=== PATIENT | female | born 1935 | race Caucasian/White ===

== ENCOUNTER 2018-12-14 13:21 | Emergency (ER) | payer MEDICARE ==
[2018-12-14] MEDS ORDERED: SODIUM CHLORIDE 0.9% 500 ML 500 ML IV ONE (14:13)
[2018-12-14 14:25] LABS: Glucose,Whole Blood 134 mg/dL (75-99)
[2018-12-14 14:38] LABS: Basophils # (A) 0.1 k/uL (0-0.2); Basophils % (A) 0 %; Eosinophils % (A) 0 %; HCT 38.6 % (34.0-46.0); HGB 13.3 gm/dL (11.4-16.0); Lymphocytes # (A) 0.4 k/uL (1.0-4.8); Lymphocytes % (A) 4 %; MCH 30.4 pg (25.0-35.0); MCHC 34.6 g/dL (31.0-37.0); MCV 87.8 fL (80.0-100.0); Mean Platelet Volume 8.1; Monocytes # (A) 0.7 k/uL (0-1.0); Monocytes % (A) 6 %; Neutrophils # (A) 10.1 k/uL (1.3-7.7); Neutrophils % (A) 89 %; Platelet Count 159 k/uL (150-450); RBC 4.39 m/uL (3.80-5.40); RDW 14.3 % (11.5-15.5); WBC 11.3 k/uL (3.8-10.6)
[2018-12-14 14:53] LABS: INR 0.9 (<1.2); Partial Thromboplastin Time 21.7 sec (22.0-30.0); Prothrombin Time 9.5 sec (9.0-12.0)
--- NOTE | 2018-12-14 14:54 | CT ---
EXAMINATION TYPE: CT brain wo con DATE OF EXAM: 12/14/2018 HISTORY: Possible medication reaction CT DLP: 1094.4 mGycm. Automated Exposure Control for Dose Reduction was Utilized. TECHNIQUE: CT scan of the head is performed without contrast. COMPARISON: None. FINDINGS: There is no acute intracranial hemorrhage or midline shift identified. There is diffuse v entricular and sulcal prominence consistent with diffuse age-related cerebral atrophy. There is low- attenuation in the periventricular white matter consistent with chronic small vessel ischemic change. Vascular calcification distal internal carotid arteries is present bilaterally The globes are intac t and the visualized sinuses are clear. IMPRESSION: No acute intracranial hemorrhage or midline shift. There is moderate diffuse age-relate d cerebral atrophy and chronic small vessel ischemic change noted.
[2018-12-14 15:01] LABS: Albumin 3.8 g/dL (3.5-5.0); Calcium 9.5 mg/dL (8.4-10.2); Potassium 4.9 mmol/L (3.5-5.1); Total Bilirubin 0.9 mg/dL (0.2-1.3); Total Protein 6.6 g/dL (6.3-8.2)
--- NOTE | 2018-12-14 15:01 | XR ---
EXAMINATION TYPE: XR chest 2V DATE OF EXAM: 12/14/2018 COMPARISON: 01/10/2016 HISTORY: Altered mental status TECHNIQUE: Frontal and lateral views of the chest are obtained. FINDINGS: Cardiomediastinal silhouette is enlarged. There is minimal pulmonary vascular congestion. Overall low lung volumes. No focal consolidation, pleural effusion or pneumothorax. Generalized osseo us demineralization with mild degenerative changes of the spine. IMPRESSION: Mild fluid overload, likely cardiogenic from congestive heart failure.
[2018-12-14] MEDS ORDERED: SODIUM CHLORIDE 0.9% 1,000 ML IV STA (15:06)
[2018-12-14 16:22] LABS: Appearance,Urine Cloudy (Clear); Bacteria,Urine Occasional /hpf; Bilirubin,Urine Negative (Negative); Blood,Urine Trace (Negative); Color,Urine Light Yellow; Glucose,Urine (UA) Negative (Negative); Ketones,Urine Negative (Negative); Leukocyte Esterase,Urine Large (Negative); Nitrite,Urine Negative (Negative); PH, Urine 5.5 (5.0-8.0); Protein,Urine 1+ (Negative); RBC,Urine 2 /hpf (0-5); Specific Gravity,Urine 1.013 (1.001-1.035); Squamous Epithelial Cell,Urine <1 /hpf (0-4); Urobilinogen,Urine <2.0 mg/dL (<2.0); WBC,Urine >182 /hpf (0-5)
[2018-12-14 16:24] VITALS: TEMP 99.5
[2018-12-14] MEDS ORDERED: cefTRIAXone IN SWFI 1,000 MG/10 ML SYRINGE IVP STA (16:30)
[2018-12-14 16:45] LABS: Amphetamine Screen,Urine Not Detected (NotDetected); Barbiturate Screen,Urine Not Detected (NotDetected); Benzodiazepines Screen,Urine Not Detected (NotDetected); Cocaine Screen,Urine Not Detected (NotDetected); Methadone Screen, Urine Not Detected (NotDetected); Opiate Screen,Urine Detected (NotDetected); Oxycodone Screen, Urine Detected (NotDetected); Phencyclidine Screen,Urine Not Detected (NotDetected); Tricyclic Antidepressant,Urine Not Detected (NotDetected); Urn Cannabinoid Scrn Not Detected (NotDetected)
[2018-12-14] MEDS ORDERED: ASPIRIN 81 MG PO STA (16:52)
--- NOTE | 2018-12-14 17:01 | ED ---
General Adult HPI - General Chief complaint: Altered Mental Status Stated complaint: poss med reaction Time Seen by Provider: 12/14/18 14:03 Source: patient, RN notes reviewed, old records reviewed Mode of arrival: EMS Limitations: no limitations - History of Present Illness Initial comments: 83-year-old female patient past history significant for atrial fibrillation, hypertension, hyperlipidemia presents ED chief complaint of altered mental status. Family reports that has been worsening for approximately one week. Patient was seen by primary care provider yesterday and started on baclofen for mild movement disorder. Patient woke up this morning and was altered. Family is in room fretting history. Denies any recent falls or trauma. Denies any other complaints. Systemic: Pt denies fatigue, fever/chills, rash. Pt night sweats, weight loss. Neuro: Pt denies headache, visual disturbances, syncope or pre-syncope. HEENT: Pt denies ocular discharge or irritation, otalgia, rhinorrhea, pharyngitis or notable lymphadenopathy. Cardiopulmonary: Pt denies chest pain, SOB, heart palpitations, dyspnea on exertion. Abdominal/GI: Pt denies abdominal pain, n/v/d. : Pt denies dysuria, burning w/ urination, frequency/urgency. Denies new onset urinary or bowel incontinence. MSK: Pt denies myalgia, loss of strength or function in extremities. Neuro: Pt denies new onset weakness, paresthesias. - Related Data Home Medications Medication Instructions Recorded Confirmed Gabapentin 300 mg PO BID 12/15/15 01/10/16 Multivitamin/Iron/Folic Acid 1 tab PO DAILY 12/15/15 01/10/16 [Centrum Complete Multivit Tab] Simvastatin [Zocor] 40 mg PO HS 12/15/15 01/10/16 rOPINIRole HCL 1 mg PO HS 12/15/15 01/10/16 traMADol HCL [Ultram] 50 mg PO Q6H PRN 12/15/15 01/10/16 Aspirin [Adult Low Dose Aspirin EC] 81 mg PO DAILY 12/31/15 01/10/16 Fish Oil/Dha/Epa [Fish Oil 1,200 1 cap PO DAILY 12/31/15 01/10/16 mg Fish Oil] Hydrochlorothiazide [Hydrodiuril] 25 mg PO DAILY 12/31/15 01/10/16 amLODIPine BESYLATE/BENAZEPRIL 1 cap PO DAILY 12/31/15 01/10/16 [amLODIPine BESYLATE/BENAZEPRIL 5-40 MG] Previous Rx's Medication Instructions Recorded Levofloxacin [Levaquin] 250 mg PO DAILY #5 tablet 01/13/16 Melatonin 6 mg PO HS tablet 01/13/16 Pantoprazole [Protonix] 40 mg PO DAILY #30 tablet. 01/13/16 Allergies Allergy/AdvReac Type Severity Reaction Status Date / Time codeine AdvReac Nausea Verified 01/10/16 13:22 Review of Systems ROS Statement: Those systems with pertinent positive or pertinent negative responses have been documented in the HPI. ROS Other: All systems not noted in ROS Statement are negative. Past Medical History Past Medical History: Atrial Fibrillation, Cancer, Hyperlipidemia, Hypertension Additional Past Medical History / Comment(s): nose skin cancer History of Any Multi-Drug Resistant Organisms: None Reported Past Surgical History: Cholecystectomy, Hysterectomy, Orthopedic Surgery Additional Past Surgical History / Comment(s): bladder suspension and cervial ring Past Anesthesia/Blood Transfusion Reactions: No Reported Reaction Past Psychological History: No Psychological Hx Reported Smoking Status: Former smoker Past Alcohol Use History: None Reported Past Drug Use History: None Reported - Past Family History Sister(s) Family Medical History: Diabetes Mellitus Brother(s) Family Medical History: Cancer (Brain) General Exam - General Exam Comments Initial Comments: Constitutional: NAD, alert and oriented 3. Pt has pleasant affect. HEENT: NC/AT, trachea midline, neck supple, no lymphadenopathy. Posterior pharynx non erythematous, without exudates. External ears appear normal, without discharge. Mucous membranes moist. Eyes PERRLA, EOM intact. There is no scleral icterus. No pallor noted. Cardiopulmonary: RRR, no murmurs, rubs or gallops, no JVD noted. Lungs CTAB in anterior and posterior santiago. No peripheral edema. Abdominal exam: Abdomen soft and non-distended. Abdomen non-tender to palpation in all 4 quadrants. Bowel sounds active in LLQ. No hepatosplenomegaly. No ecchymosis Neuro: CN II-XII intact. No nuchal rigidity. No raccon eyes, no coyle sign, no hemotympanum. No cervical spinal tenderness. MSK: No posterior calf tenderness bilaterally, homans sign negative bilaterally. Posterior tibialis and radial pulse +2 bilaterally. Sensation intact in upper and lower extremities. Limitations: no limitations Course Vital Signs 12/14/18 12/14/18 12/14/18 13:34 13:37 14:00 Temperature 100.6 F H Pulse Rate 87 69 78 Respiratory 19 18 14 Rate Blood Pressure 227/103 227/103 O2 Sat by Pulse 97 98 Oximetry 12/14/18 12/14/18 12/14/18 14:30 15:00 15:30 Temperature Pulse Rate 80 76 80 Respiratory 23 19 8 L Rate Blood Pressure 225/127 190/92 O2 Sat by Pulse 98 98 100 Oximetry 12/14/18 12/14/18 16:00 16:23 Temperature 99.5 F Pulse Rate 74 74 Respiratory 20 20 Rate Blood Pressure 179/78 179/78 O2 Sat by Pulse 100 100 Oximetry Medical Decision Making - Medical Decision Making 83-year-old female patient past history significant for atrial fibrillation, hypertension, hyperlipidemia presents ED chief complaint of altered mental status. Family reports that has been worsening for approximately one week. Patient was seen by primary care provider yesterday and started on baclofen for mild movement disorder. Patient woke up this morning and was altered. Family is in room fretting history. Denies any recent falls or trauma. Denies any other complaints. She also has additionally displayed hypertension, resolved for intervention. Physical exam displayed no focal neurologic deficit. She will answer questions appropriately. Patient does have some weakness symmetrically in upper and lower extremities. No other acute pathology identified. EKG displayed atrial fibrillation. CBC correlation studies non- impressive. CMP revealed acute kidney injury of 2.86. 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 Troponin 0.016. Ammonia negative. UA displayed urinary tract infection. Toxicology revealed opiates, oxycodone. Brain CT displayed no acute process. Chest x-ray revealed mild fluid overload. Case discussed and patient was examined by attending physician Dr. Couch. It is possible that also understands likely due to urinary tract infection, however neurologic cause not excluded. Patient not TPA candidate, patient on candidate for CT angio due to kidney function. Case is discussed with on-call neurologist Dr. eRed who reccomended transfer to [facility] for neurology evaluation and MRI. She started on Rocephin for urinary tract infection and one dose of po cipro per reccomendation from pharmacy. Administered 250 mL bolus. 75 mL/hr normal saline. Pt transferred to [facility] for neurology. Case discussed and pt seen by Dr. Couch. Accepting physician Dr. Herbert. - Lab Data Result diagrams: 12/14/18 14:01 12/14/18 14:01 Lab Results 12/14/18 12/14/18 12/14/18 Range/Units 14:01 14:01 14:01 WBC 11.3 H (3.8-10.6) k/uL RBC 4.39 (3.80-5.40) m/uL Hgb 13.3 (11.4-16.0) gm/dL Hct 38.6 (34.0-46.0) % MCV 87.8 (80.0-100.0) fL MCH 30.4 (25.0-35.0) pg MCHC 34.6 (31.0-37.0) g/dL RDW 14.3 (11.5-15.5) % Plt Count 159 (150-450) k/uL Neutrophils % 89 % Lymphocytes % 4 % Monocytes % 6 % Eosinophils % 0 % Basophils % 0 % Neutrophils # 10.1 H (1.3-7.7) k/uL Lymphocytes # 0.4 L (1.0-4.8) k/uL Monocytes # 0.7 (0-1.0) k/uL Eosinophils # 0.0 (0-0.7) k/uL Basophils # 0.1 (0-0.2) k/uL PT 9.5 (9.0-12.0) sec INR 0.9 (<1.2) APTT 21.7 L (22.0-30.0) sec Sodium 139 (137-145) mmol/L Potassium 4.9 (3.5-5.1) mmol/L Chloride 100 (98-107) mmol/L Carbon Dioxide 26 (22-30) mmol/L Anion Gap 13 mmol/L BUN 58 H (7-17) mg/dL Creatinine 2.86 H (0.52-1.04) mg/dL Est GFR (CKD-EPI)AfAm 17 (>60 ml/min/1.73 sqM) Est GFR (CKD-EPI)NonAf 14 (>60 ml/min/1.73 sqM) Glucose 128 H (74-99) mg/dL POC Glucose (mg/dL) (75-99) mg/dL POC Glu Filling Layer Up ID Calcium 9.5 (8.4-10.2) mg/dL Magnesium 2.0 (1.6-2.3) mg/dL Total Bilirubin 0.9 (0.2-1.3) mg/dL AST 19 (14-36) U/L ALT 18 (9-52) U/L Alkaline Phosphatase 85 (38-126) U/L Ammonia (<30) umol/L Creatine Kinase 82 (30-135) U/L Troponin I (0.000-0.034) ng/mL Total Protein 6.6 (6.3-8.2) g/dL Albumin 3.8 (3.5-5.0) g/dL Urine Color Urine Appearance (Clear) Urine pH (5.0-8.0) Ur Specific [place] (1.001-1.035) Urine Protein (Negative) Urine Glucose (UA) (Negative) Urine Ketones (Negative) Urine Blood (Negative) Urine Nitrite (Negative) Urine Bilirubin (Negative) Urine Urobilinogen (<2.0) mg/dL Ur Leukocyte Esterase (Negative) Urine RBC (0-5) /hpf Urine WBC (0-5) /hpf Urine WBC Clumps (None) /hpf Ur Squamous Epith Cells (0-4) /hpf Urine Bacteria (None) /hpf Urine Opiates Screen (NotDetected) Ur Oxycodone Screen (NotDetected) Urine Methadone Screen (NotDetected) Ur Propoxyphene Screen (NotDetected) Ur Barbiturates Screen (NotDetected) U Tricyclic Antidepress (NotDetected) Ur Phencyclidine Scrn (NotDetected) Ur Amphetamines Screen (NotDetected) U Methamphetamines Scrn (NotDetected) U Benzodiazepines Scrn (NotDetected) Urine Cocaine Screen (NotDetected) U Marijuana (THC) Screen (NotDetected) 12/14/18 12/14/18 12/14/18 Range/Units 14:01 14:22 15:30 WBC (3.8-10.6) k/uL RBC (3.80-5.40) m/uL Hgb (11.4-16.0) gm/dL Hct (34.0-46.0) % MCV (80.0-100.0) fL MCH (25.0-35.0) pg MCHC (31.0-37.0) g/dL RDW (11.5-15.5) % Plt Count (150-450) k/uL Neutrophils % % Lymphocytes % % Monocytes % % Eosinophils % % Basophils % % Neutrophils # (1.3-7.7) k/uL Lymphocytes # (1.0-4.8) k/uL Monocytes # (0-1.0) k/uL Eosinophils # (0-0.7) k/uL Basophils # (0-0.2) k/uL PT (9.0-12.0) sec INR (<1.2) APTT (22.0-30.0) sec Sodium (137-145) mmol/L Potassium (3.5-5.1) mmol/L Chloride (98-107) mmol/L Carbon Dioxide (22-30) mmol/L Anion Gap mmol/L BUN (7-17) mg/dL Creatinine (0.52-1.04) mg/dL Est GFR (CKD-EPI)AfAm (>60 ml/min/1.73 sqM) Est GFR (CKD-EPI)NonAf (>60 ml/min/1.73 sqM) Glucose (74-99) mg/dL POC Glucose (mg/dL) 134 H (75-99) mg/dL POC Glu Filling Layer Up ID Giselle Stevens Calcium (8.4-10.2) mg/dL Magnesium (1.6-2.3) mg/dL Total Bilirubin (0.2-1.3) mg/dL AST (14-36) U/L ALT (9-52) U/L Alkaline Phosphatase (38-126) U/L Ammonia (<30) umol/L Creatine Kinase (30-135) U/L Troponin I 0.016 (0.000-0.034) ng/mL Total Protein (6.3-8.2) g/dL Albumin (3.5-5.0) g/dL Urine Color Light Yellow Urine Appearance Cloudy H (Clear) Urine pH 5.5 (5.0-8.0) Ur Specific [place] 1.013 (1.001-1.035) Urine Protein 1+ H (Negative) Urine Glucose (UA) Negative (Negative) Urine Ketones Negative (Negative) Urine Blood Trace H (Negative) Urine Nitrite Negative (Negative) Urine Bilirubin Negative (Negative) Urine Urobilinogen <2.0 (<2.0) mg/dL Ur Leukocyte Esterase Large H (Negative) Urine RBC 2 (0-5) /hpf Urine WBC >182 H (0-5) /hpf Urine WBC Clumps Moderate H (None) /hpf Ur Squamous Epith Cells <1 (0-4) /hpf Urine Bacteria Occasional H (None) /hpf Urine Opiates Screen Detected H (NotDetected) Ur Oxycodone Screen Detected H (NotDetected) Urine Methadone Screen Not Detected (NotDetected) Ur Propoxyphene Screen Not Detected (NotDetected) Ur Barbiturates Screen Not Detected (NotDetected) U Tricyclic Antidepress Not Detected (NotDetected) Ur Phencyclidine Scrn Not Detected (NotDetected) Ur Amphetamines Screen Not Detected (NotDetected) U Methamphetamines Scrn Not Detected (NotDetected) U Benzodiazepines Scrn Not Detected (NotDetected) Urine Cocaine Screen Not Detected (NotDetected) U Marijuana (THC) Screen Not Detected (NotDetected) 12/14/18 Range/Units 15:30 WBC (3.8-10.6) k/uL RBC (3.80-5.40) m/uL Hgb (11.4-16.0) gm/dL Hct (34.0-46.0) % MCV (80.0-100.0) fL MCH (25.0-35.0) pg MCHC (31.0-37.0) g/dL RDW (11.5-15.5) % Plt Count (150-450) k/uL Neutrophils % % Lymphocytes % % Monocytes % % Eosinophils % % Basophils % % Neutrophils # (1.3-7.7) k/uL Lymphocytes # (1.0-4.8) k/uL Monocytes # (0-1.0) k/uL Eosinophils # (0-0.7) k/uL Basophils # (0-0.2) k/uL PT (9.0-12.0) sec INR (<1.2) APTT (22.0-30.0) sec Sodium (137-145) mmol/L Potassium (3.5-5.1) mmol/L Chloride (98-107) mmol/L Carbon Dioxide (22-30) mmol/L Anion Gap mmol/L BUN (7-17) mg/dL Creatinine (0.52-1.04) mg/dL Est GFR (CKD-EPI)AfAm (>60 ml/min/1.73 sqM) Est GFR (CKD-EPI)NonAf (>60 ml/min/1.73 sqM) Glucose (74-99) mg/dL POC Glucose (mg/dL) (75-99) mg/dL POC Glu Filling Layer Up ID Calcium (8.4-10.2) mg/dL Magnesium (1.6-2.3) mg/dL Total Bilirubin (0.2-1.3) mg/dL AST (14-36) U/L ALT (9-52) U/L Alkaline Phosphatase (38-126) U/L Ammonia <9 (<30) umol/L Creatine Kinase (30-135) U/L Troponin I (0.000-0.034) ng/mL Total Protein (6.3-8.2) g/dL Albumin (3.5-5.0) g/dL Urine Color Urine Appearance (Clear) Urine pH (5.0-8.0) Ur Specific [place] (1.001-1.035) Urine Protein (Negative) Urine Glucose (UA) (Negative) Urine Ketones (Negative) Urine Blood (Negative) Urine Nitrite (Negative) Urine Bilirubin (Negative) Urine Urobilinogen (<2.0) mg/dL Ur Leukocyte Esterase (Negative) Urine RBC (0-5) /hpf Urine WBC (0-5) /hpf Urine WBC Clumps (None) /hpf Ur Squamous Epith Cells (0-4) /hpf Urine Bacteria (None) /hpf Urine Opiates Screen (NotDetected) Ur Oxycodone Screen (NotDetected) Urine Methadone Screen (NotDetected) Ur Propoxyphene Screen (NotDetected) Ur Barbiturates Screen (NotDetected) U Tricyclic Antidepress (NotDetected) Ur Phencyclidine Scrn (NotDetected) Ur Amphetamines Screen (NotDetected) U Methamphetamines Scrn (NotDetected) U Benzodiazepines Scrn (NotDetected) Urine Cocaine Screen (NotDetected) U Marijuana (THC) Screen (NotDetected) Disposition Clinical Impression: UTI (urinary tract infection), Altered mental status Disposition: OTHER INSTITUTION NOT DEFINED Condition: Serious Is patient prescribed a controlled substance at d/c from ED?: No Referrals: Ryley Perry MD [Primary Care Provider] - 1-2 days - Out of Hospital Transfer - Req. Specs Out of Hospital Transfer - Requested Specifics: Other [facility] ([facility])
[2018-12-14] MEDS ORDERED: SODIUM CHLORIDE 0.9% 500 ML 500 ML IV STA (17:39)
[2018-12-14] MEDS ORDERED: CIPROFLOXACIN HCL 250 MG TAB PO STA (18:00)
[2018-12-14] MEDS ORDERED: SODIUM CHLORIDE 0.9% 1,000 ML IV SCH (18:00)
[2018-12-14 18:08] VITALS: BP 147/65; PULSE 77; RESP 19
== END 2018-12-14 19:00 | disposition short-term general hospital (02) ==
LOC: EC 13:21
DX: N39.0 Urinary tract infection, site not specified (principal); R41.82 Altered mental status, unspecified; I48.91 Unspecified atrial fibrillation; N17.9 Acute kidney failure, unspecified; E87.70 Fluid overload, unspecified; G25.9 Extrapyramidal and movement disorder, unspecified; E78.5 Hyperlipidemia, unspecified; I10 Essential (primary) hypertension; Z87.891 Personal history of nicotine dependence; Z80.8 Family history of malignant neoplasm of other organs or systems; Z88.5 Allergy status to narcotic agent; Z79.82 Long term (current) use of aspirin; Z79.899 Other long term (current) drug therapy; Z85.828 Personal history of other malignant neoplasm of skin; Z53.8 Procedure and treatment not carried out for other reasons
CPT/HCPCS: 99285; 96374; 96361; 36415; 93005; 80053; 82140; 82550; 83735; 84484; 85025; 85610; 85730; 81001; 80306; 71046; 70450; J0696

== ENCOUNTER → 2022-09-23 | Outpatient (CLI) | payer MEDICARE ==
--- NOTE | 2022-09-23 14:53 | US ---
EXAMINATION TYPE: US kidneys/renal and bladder DATE OF EXAM: 09/23/2022 COMPARISON: 12/13/2015 CLINICAL INDICATION: Female, 86 years old with history of N18.32 CHRONIC KIDNEY DISEASE, STAGE 3B; ab n renal function EXAM MEASUREMENTS: Right Kidney: 10.2x4.4x4.6 cm Left Kidney: 10.1x5.1x4.1 cm Right Kidney: several anechoic areas seen, largest 2 measured Sup/Lat: 1.7x1.8x1.6cm Mid/Lat: 1.7x1.6x2.2cm Left Kidney: mild hydro Bladder: wnl Bilateral Jets seen: Yes No nephrolithiasis is seen. The urinary bladder is anechoic. Bilateral ureteral jets are seen. IMPRESSION: Simple renal cysts noted.
== END | disposition home or self-care (01) ==
LOC: RADUSWWP 13:53
PROVIDERS: ATTEND Internal Medicine Geriatric Medicine
DX: N18.32 Chronic kidney disease, stage 3b (principal); N28.1 Cyst of kidney, acquired
CPT/HCPCS: 76770

== ENCOUNTER 2023-02-06 15:43 | Emergency (ER) | payer MEDICARE, OTHER ==
--- NOTE | 2023-02-06 17:23 | ED ---
General Adult HPI - General Chief complaint: Skin/Abscess/Foreign Body Stated complaint: right leg pain Time Seen by Provider: 02/06/23 16:42 Source: patient Mode of arrival: ambulatory Limitations: no limitations - History of Present Illness Initial comments: 87-year-old female past medical history significant for CHF, A. fib on Eliquis, and chronic kidney disease presents to the ED with a chief complaint of right lower extremity swelling. Per patient's daughter, patient has intermittent issues with leg swelling due to history of CHF. States once they leg started to swell and weep. Since then, reports increased swelling, redness and warmth and last night, patient states started to feel sharp pain of the leg. No chest pain or shortness of breath. She also has chronic urinary retention. Reports that she usually straight caths twice a day for this. States that she has recently felt the urge to straight cath her often. Denies abdominal pain. Denies flank pain. Denies fever or chills. No other complaints. - Related Data Home Medications Medication Instructions Recorded Confirmed Gabapentin 300 mg PO BID 12/15/15 01/10/16 Multivitamin/Iron/Folic Acid 1 tab PO DAILY 12/15/15 01/10/16 [Centrum Complete Multivit Tab] Simvastatin [Zocor] 40 mg PO HS 12/15/15 01/10/16 rOPINIRole HCL 1 mg PO HS 12/15/15 01/10/16 traMADol HCL [Ultram] 50 mg PO Q6H PRN 12/15/15 01/10/16 Aspirin [Adult Low Dose Aspirin EC] 81 mg PO DAILY 12/31/15 01/10/16 Fish Oil/Dha/Epa [Fish Oil 1,200 1 cap PO DAILY 12/31/15 01/10/16 mg Fish Oil] amLODIPine BESYLATE/BENAZEPRIL 1 cap PO DAILY 12/31/15 01/10/16 [Lotrel 5-40 MG] hydroCHLOROthiazide [Hydrodiuril] 25 mg PO DAILY 12/31/15 01/10/16 Previous Rx's Medication Instructions Recorded Levofloxacin [Levaquin] 250 mg PO DAILY #5 tablet 01/13/16 Melatonin 6 mg PO HS tablet 01/13/16 Pantoprazole [Protonix] 40 mg PO DAILY #30 tablet.dr 01/13/16 Cephalexin [Keflex] 500 mg PO Q6HR 28 Days #7 cap 02/06/23 Allergies Allergy/AdvReac Type Severity Reaction Status Date / Time codeine AdvReac Nausea Verified 02/06/23 16:06 Review of Systems ROS Statement: Those systems with pertinent positive or pertinent negative responses have been documented in the HPI. ROS Other: All systems not noted in ROS Statement are negative. Past Medical History Past Medical History: Atrial Fibrillation, Cancer, Hyperlipidemia, Hypertension Additional Past Medical History / Comment(s): nose skin cancer History of Any Multi-Drug Resistant Organisms: None Reported Past Surgical History: Cholecystectomy, Hysterectomy, Orthopedic Surgery Additional Past Surgical History / Comment(s): bladder suspension and cervial ring Past Anesthesia/Blood Transfusion Reactions: No Reported Reaction Past Psychological History: No Psychological Hx Reported Smoking Status: Never smoker Past Alcohol Use History: None Reported Past Drug Use History: None Reported - Past Family History Sister(s) Family Medical History: Diabetes Mellitus Brother(s) Family Medical History: Cancer (Brain) General Exam Limitations: no limitations General appearance: alert, in no apparent distress Neck exam: Present: normal inspection Respiratory exam: Present: normal lung sounds bilaterally Cardiovascular Exam: Present: regular rate GI/Abdominal exam: Present: soft (No Tenderness to palpation. No rebound guarding or rigidity.) Extremities exam: Present: other (Right lower extremity shows 2+ pitting edema with redness, warmth, tenderness to palpation. Negative Homans sign. DP/PT pulses 2+. Left lower extremity shows 1+ pitting edema. Strength and sensation equal and intact bilateral lower extremities.) Neurological exam: Present: alert, oriented X3 Skin exam: Present: warm, dry Course Vital Signs 02/06/23 16:03 Temperature 98.2 F Pulse Rate 73 Respiratory 20 Rate Blood Pressure 161/65 O2 Sat by Pulse 98 Oximetry Medical Decision Making - Medical Decision Making Was pt. sent in by a medical professional or institution (, PA, ABRASIVE MIXER, urgent care, hospital, or longterm...) When possible be specific @ -No Did you speak to anyone other than the patient for history (EMS, parent, family, police, friend...)? What history was obtained from this source @ -No Did you review nursing and triage notes (agree or disagree)? Why? @ -I reviewed and agree with nursing and triage notes Were old charts reviewed (outside hosp., previous admission, EMS record, old EKG, old radiological studies, urgent care reports/EKG's, longterm records)? Report findings @ -No old charts were reviewed Differential Diagnosis (chest pain, altered mental status, abdominal pain women, abdominal pain men, vaginal bleeding, weakness, fever, dyspnea, syncope, headache, dizziness, GI bleed, back pain, seizure, CVA, palpatations, mental health, musculoskeletal)? @ -Differential Musculoskeletal Muscular strain, contusion, ligament sprain, fracture, arthritis, septic arthritis, bursitis, cellulitis, muscle spasm, nerve compression, DVT, arterial occlusion, herpes zoster, electrolyte abnormality, tumor.... This is not meant to be in all inclusive list EKG interpreted by me (3pts min.). @ -As above X-rays interpreted by me (1pt min.). @ -None done CT interpreted by me (1pt min.). @ -None done U/S interpreted by me (1pt. min.). @ -None done What testing was considered but not performed or refused? (CT, X-rays, U/S, labs)? Why? @ -None What meds were considered but not given or refused? Why? @ -None Did you discuss the management of the patient with other professionals (professionals i.e. , PA, ABRASIVE MIXER, lab, RT, psych nurse, community mental health social worker, hop strainer, teacher, commissary officer, family independence case manager)? Give summary @ -No Was smoking cessation discussed for >3mins.? @ -No Was critical care preformed (if so, how long)? @ -No Were there social determinants of health that impacted care today? How? (Homele ssness, low income, unemployed, alcoholism, drug addiction, transportation, low edu. Level, literacy, decrease access to med. care, senior care, rehab)? @ -No Was there de-escalation of care discussed even if they declined (Discuss DNR or withdrawal of care, Hospice)? DNR status @ -No What co-morbidities impacted this encounter? (DM, HTN, Smoking, COPD, CAD, Cancer, CVA, ARF, Chemo, Hep., AIDS, mental health diagnosis, sleep apnea, morbid obesity)? @ -None Was patient admitted / discharged? Hospital course, mention meds given and route, prescriptions, significant lab abnormalities, going to OR and other pertinent info. @ -Discharge 87-year-old female with a history of CHF presenting to the ED due to concerns of increasing leg swelling, redness, warmth, and 1 day history of pain. Laboratory studies reviewed, CBC largely unremarkable. History panel does show elevations of her BUN and creatinine however appears consistent with history of chronic kidney disease. Urine does not show any evidence of overt infection. Patient provided prescription for Keflex and discharged home in stable condition with instructions to follow with her PCP. Discussed return precautions with patient and family who verbalizes agreement. Undiagnosed new problem with uncertain prognosis? @ -No Drug Therapy requiring intensive monitoring for toxicity (Heparin, Nitro, Insulin, Cardizem)? @ -No Were any procedures done? @ -No Diagnosis/symptom? @ -Cellulitis, right lower extremity Acute, or Chronic, or Acute on Chronic? @ -Acute Uncomplicated (without systemic symptoms) or Complicated (systemic symptoms)? @ -Uncomplicated Side effects of treatment? @ -No Exacerbation, Progression, or Severe Exacerbation? @ -No Poses a threat to life or bodily function? How? (Chest pain, [place], [place], pneumonia, PE, COPD, DKA, ARF, appy, cholecystitis, CVA, Diverticulitis, Homicidal, Suicidal, threat to staff... and all critical care pts) @ -No - Lab Data Result diagrams: 02/06/23 17:00 02/06/23 17:00 Lab Results 02/06/23 02/06/23 02/06/23 Range/Units 17:00 17:00 18:59 WBC 6.8 (3.8-10.6) k/uL RBC 3.87 (3.80-5.40) m/uL Hgb 12.4 (11.4-16.0) gm/dL Hct 37.6 (34.0-46.0) % MCV 97.2 (80.0-100.0) fL MCH 31.9 (25.0-35.0) pg MCHC 32.9 (31.0-37.0) g/dL RDW 16.9 H (11.5-15.5) % Plt Count 133 L (150-450) k/uL MPV 10.7 Neutrophils % 79 % Lymphocytes % 12 % Monocytes % 6 % Eosinophils % 0 % Basophils % 0 % Neutrophils # 5.4 (1.3-7.7) k/uL Lymphocytes # 0.8 L (1.0-4.8) k/uL Monocytes # 0.4 (0-1.0) k/uL Eosinophils # 0.0 (0-0.7) k/uL Basophils # 0.0 (0-0.2) k/uL Hypochromasia Slight Anisocytosis Slight Macrocytosis Slight Sodium 135 L (137-145) mmol/L Potassium 5.5 H (3.5-5.1) mmol/L Chloride 100 (98-107) mmol/L Carbon Dioxide 23 (22-30) mmol/L Anion Gap 12 mmol/L BUN 36 H (7-17) mg/dL Creatinine 2.09 H (0.52-1.04) mg/dL Est GFR (CKD-EPI)AfAm 24 (>60 ml/min/1.73 sqM) Est GFR (CKD-EPI)NonAf 21 (>60 ml/min/1.73 sqM) Glucose 128 H (74-99) mg/dL Calcium 9.5 (8.4-10.2) mg/dL Total Bilirubin 1.1 (0.2-1.3) mg/dL AST 33 (14-36) U/L ALT 18 (4-34) U/L Alkaline Phosphatase 149 H (38-126) U/L Total Protein 7.4 (6.3-8.2) g/dL Albumin 4.3 (3.5-5.0) g/dL Urine Color Colorless Urine Appearance Clear (Clear) Urine pH 6.5 (5.0-8.0) Ur Specific [place] 1.009 (1.001-1.035) Urine Protein Trace H (Negative) Urine Glucose (UA) Negative (Negative) Urine Ketones Negative (Negative) Urine Blood Trace H (Negative) Urine Nitrite Positive H (Negative) Urine Bilirubin Negative (Negative) Urine Urobilinogen <2.0 (<2.0) mg/dL Ur Leukocyte Esterase Small H (Negative) Urine RBC 8 H (0-5) /hpf Urine WBC 5 (0-5) /hpf Urine Bacteria Occasional H (None) /hpf Urine Mucus Rare H (None) /hpf - EKG Data EKG Comments: EKG shows A. fib at [address] or T-wave changes. QRS 89, QT/QTc 404/423. Disposition Clinical Impression: Cellulitis Disposition: HOME SELF-CARE Condition: Good Additional Instructions: Please return to the Emergency Department if symptoms worsen or any other concerns. Follow up with your primary care provider. Prescriptions: Cephalexin [Keflex] 500 mg PO Q6HR 28 Days #7 cap Is patient prescribed a controlled substance at d/c from ED?: No Referrals: Maurice Kruse MD [Primary Care Provider] - 1-2 days Time of Disposition: 20:20
[2023-02-06] MEDS ORDERED: KETOROLAC 15 MG/ML 1 ML VIAL IVP STA (17:34)
[2023-02-06 17:42] LABS: Anisocytosis Slight; Basophils % (A) 0 %; Eosinophils % (A) 0 %; HCT 37.6 % (34.0-46.0); HGB 12.4 gm/dL (11.4-16.0); Hypochromasia Slight; Lymphocytes # (A) 0.8 k/uL (1.0-4.8); Lymphocytes % (A) 12 %; MCH 31.9 pg (25.0-35.0); MCHC 32.9 g/dL (31.0-37.0); MCV 97.2 fL (80.0-100.0); Macrocytosis Slight; Mean Platelet Volume 10.7; Monocytes # (A) 0.4 k/uL (0-1.0); Monocytes % (A) 6 %; Neutrophils # (A) 5.4 k/uL (1.3-7.7); Neutrophils % (A) 79 %; Platelet Count 133 k/uL (150-450); RBC 3.87 m/uL (3.80-5.40); RDW 16.9 % (11.5-15.5); WBC 6.8 k/uL (3.8-10.6)
[2023-02-06 17:59] LABS: ALT 18 U/L (4-34); AST 33 U/L (14-36); African American GFR (CKD) 24 (>60 ml/min/1.73 sqM); Albumin 4.3 g/dL (3.5-5.0); Alkaline Phosphatase 149 U/L (38-126); Anion Gap 12 mmol/L; Blood Urea Nitrogen 36 mg/dL (7-17); Calcium 9.5 mg/dL (8.4-10.2); Carbon Dioxide 23 mmol/L (22-30); Chloride 100 mmol/L (98-107); Glucose 128 mg/dL (74-99); Non-African American GFR(CKD) 21 (>60 ml/min/1.73 sqM); Potassium 5.5 mmol/L (3.5-5.1); Sodium 135 mmol/L (137-145); Total Bilirubin 1.1 mg/dL (0.2-1.3); Total Protein 7.4 g/dL (6.3-8.2)
--- NOTE | 2023-02-06 18:31 | XR ---
EXAMINATION TYPE: XR tibia fibula RT DATE OF EXAM: 02/06/2023 COMPARISON: None HISTORY: Osteochondral ration TECHNIQUE: 2 view right tibia and fibula FINDINGS: Right tibia and fibula are examined in AP and lateral views. Vascular calcification is note d. Joint spaces appear preserved. No acute fracture or dislocation is evident. No cortical erosions a re evident. IMPRESSION: 1. No suspicious changes for acute osteomyelitis.
[2023-02-06 19:09] LABS: Appearance,Urine Clear (Clear); Bacteria,Urine Occasional /hpf; Bilirubin,Urine Negative (Negative); Blood,Urine Trace (Negative); Color,Urine Colorless; Glucose,Urine (UA) Negative (Negative); Ketones,Urine Negative (Negative); Leukocyte Esterase,Urine Small (Negative); Mucus,Urine Rare /hpf; Nitrite,Urine Positive (Negative); PH, Urine 6.5 (5.0-8.0); Protein,Urine Trace (Negative); RBC,Urine 8 /hpf (0-5); Specific Gravity,Urine 1.009 (1.001-1.035); Urobilinogen,Urine <2.0 mg/dL (<2.0); WBC,Urine 5 /hpf (0-5)
[2023-02-06 21:05] VITALS: BP 166/72; PULSE 65; RESP 18; TEMP 98.7
== END 2023-02-06 20:57 | disposition home or self-care (01) ==
LOC: EC 15:43
DX: L03.115 Cellulitis of right lower limb (principal); I48.91 Unspecified atrial fibrillation; I13.0 Hypertensive heart and chronic kidney disease with heart failure and stage 1 through stage 4 chronic kidney disease, or unspecified chronic kidney disease; I50.9 Heart failure, unspecified; N18.9 Chronic kidney disease, unspecified; E78.5 Hyperlipidemia, unspecified; Z88.5 Allergy status to narcotic agent; Z79.82 Long term (current) use of aspirin; Z79.899 Other long term (current) drug therapy
CPT/HCPCS: 36415; 93005; 80053; 85025; 81001; 73590; 99284; 96374; J1885

== ENCOUNTER 2023-04-13 15:06 | Emergency (ER) | payer MEDICARE, OTHER ==
--- NOTE | 2023-04-13 15:42 | ED ---
Head Injury HPI - General Source: patient, family, RN notes reviewed Mode of arrival: ambulatory Limitations: no limitations <Corrine Frederick - Last Filed: 04/13/23 15:43> <Angela Raman - Last Filed: 04/13/23 18:13> - General Chief complaint: Head Injury Stated complaint: Fall Time Seen by Provider: 04/13/23 15:41 - History of Present Illness Initial comments: Patient is a 7-year-old female presented ER with chief complaint of a fall. Last night patient states she was trying to get out of bed lost her balance and fell hitting her head on her nightstand. Patient is on Eliquis. Denies loss of consciousness. Denies any other injuries. Patient was seen by PCP and sent here for further evaluation. Denies any dizziness, lightheadedness, chest pain, shortness of breath prior to fall. (Corrine Frederick) - Related Data Home Medications Medication Instructions Recorded Confirmed Gabapentin 300 mg PO BID 12/15/15 01/10/16 Multivitamin/Iron/Folic Acid 1 tab PO DAILY 12/15/15 01/10/16 [Centrum Complete Multivit Tab] Simvastatin [Zocor] 40 mg PO HS 12/15/15 01/10/16 rOPINIRole HCL 1 mg PO HS 12/15/15 01/10/16 traMADol HCL [Ultram] 50 mg PO Q6H PRN 12/15/15 01/10/16 Aspirin [Adult Low Dose Aspirin EC] 81 mg PO DAILY 12/31/15 01/10/16 Fish Oil/Dha/Epa [Fish Oil 1,200 1 cap PO DAILY 12/31/15 01/10/16 mg Fish Oil] amLODIPine BESYLATE/BENAZEPRIL 1 cap PO DAILY 12/31/15 01/10/16 [Lotrel 5-40 MG] hydroCHLOROthiazide [Hydrodiuril] 25 mg PO DAILY 12/31/15 01/10/16 Previous Rx's Medication Instructions Recorded Levofloxacin [Levaquin] 250 mg PO DAILY #5 tablet 01/13/16 Melatonin 6 mg PO HS tablet 01/13/16 Pantoprazole [Protonix] 40 mg PO DAILY #30 tablet. 01/13/16 Cephalexin [Keflex] 500 mg PO Q6HR 28 Days #7 cap 02/06/23 Allergies/Adverse reactions: Allergies Allergy/AdvReac Type Severity Reaction Status Date / Time codeine AdvReac Nausea Verified 02/06/23 16:06 Review of Systems ROS Other: All systems not noted in ROS Statement are negative. <Corrine Frederick - Last Filed: 04/13/23 15:43> ROS Other: All systems not noted in ROS Statement are negative. <Angela Raman - Last Filed: 04/13/23 18:13> ROS Statement: Those systems with pertinent positive or pertinent negative responses have been documented in the HPI. Past Medical History Past Medical History: Atrial Fibrillation, Cancer, Hyperlipidemia, Hypertension Additional Past Medical History / Comment(s): nose skin cancer History of Any Multi-Drug Resistant Organisms: None Reported Past Surgical History: Cholecystectomy, Hysterectomy, Orthopedic Surgery Additional Past Surgical History / Comment(s): bladder suspension and cervial ring Past Anesthesia/Blood Transfusion Reactions: No Reported Reaction Past Psychological History: No Psychological Hx Reported Smoking Status: Never smoker Past Alcohol Use History: None Reported Past Drug Use History: None Reported - Past Family History Sister(s) Family Medical History: Diabetes Mellitus Brother(s) Family Medical History: Cancer (Brain) <Corrine Frederick - Last Filed: 04/13/23 15:43> General Exam Limitations: no limitations <LawsonCorrine guerra - Last Filed: 04/13/23 15:43> Limitations: no limitations General appearance: alert, in no apparent distress Head exam: Present: atraumatic, normocephalic, normal inspection Eye exam: Present: normal appearance, PERRL, EOMI. Absent: scleral icterus, conjunctival injection, periorbital swelling ENT exam: Present: normal exam, mucous membranes moist Neck exam: Present: normal inspection. Absent: tenderness, meningismus, lymphadenopathy Respiratory exam: Present: normal lung sounds bilaterally. Absent: respiratory distress, wheezes, rales, rhonchi, stridor Cardiovascular Exam: Present: regular rate, normal rhythm, normal heart sounds. Absent: systolic murmur, diastolic murmur, rubs, gallop, clicks GI/Abdominal exam: Present: soft, normal bowel sounds. Absent: distended, tenderness, guarding, rebound, rigid Extremities exam: Present: full ROM, normal capillary refill, pedal edema. Absent: tenderness, joint swelling, calf tenderness Back exam: Present: normal inspection Neurological exam: Present: alert, oriented X3, CN II-XII intact Psychiatric exam: Present: normal affect, normal mood Skin exam: Present: warm, dry, erythema (bilateral lower extremities) <Angela Raman - Last Filed: 04/13/23 18:13> - General Exam Comments Initial Comments: Visual Physical Exam Vital signs reviewed General: Well-appearing, nontoxic, no acute distress. Head: Normocephalic, hematoma/ contusion noted on posterior scalp Eyes: PERRLA, EOMI ENT: Airway patent Chest: Nonlabored breathing Skin: No visual rash, normal skin tone Neuro: Alert and oriented 3 Musculoskeletal: No gross abnormalities (Corrine Frederick) Course Vital Signs 04/13/23 15:31 Temperature 97.8 F Pulse Rate 79 Respiratory 16 Rate Blood Pressure 186/81 O2 Sat by Pulse 95 Oximetry Medical Decision Making <Corrine Frederick - Last Filed: 04/13/23 15:43> <Angela Raman - Last Filed: 04/13/23 18:13> - Medical Decision Making I performed the quick note portion of the exam. Electronically signed by Corrine Frederick PA-C (Corrine Frederick) Was pt. sent in by a medical professional or institution (FRANKIE Soler, MATERIAL REQUISITIONER, urgent care, hospital, or care home...) When possible be specific @ -No Did you speak to anyone other than the patient for history (EMS, parent, family, police, friend...)? What history was obtained from this source @ -patients caregiver at bedside Did you review nursing and triage notes (agree or disagree)? Why? @ -I reviewed and agree with nursing and triage notes Were old charts reviewed (outside hosp., previous admission, EMS record, old EKG, old radiological studies, urgent care reports/EKG's, care home records)? Report findings @ -No old charts were reviewed Differential Diagnosis (chest pain, altered mental status, abdominal pain women, abdominal pain men, vaginal bleeding, weakness, fever, dyspnea, syncope, headache, dizziness, GI bleed, back pain, seizure, CVA, palpatations, mental health, musculoskeletal)? @ -Fall, fracture, head contusion, intracranial hemorrhage, this list is not all-inclusive EKG interpreted by me (3pts min.). @ -None X-rays interpreted by me (1pt min.). @ -None done CT interpreted by me (1pt min.). @ -CT brain and C-spine shows no acute intracranial hemorrhage, no cervical spine fracture U/S interpreted by me (1pt. min.). @ -None done What testing was considered but not performed or refused? (CT, X-rays, U/S, labs)? Why? @ -None What meds were considered but not given or refused? Why? @ -None Did you discuss the management of the patient with other professionals (professionals i.e. Dr., PA, MATERIAL REQUISITIONER, lab, RT, psych nurse, social welfare research worker, network intern, teacher, state wildlife officer, case sealer)? Give summary @ -No Was smoking cessation discussed for >3mins.? @ -No Was critical care preformed (if so, how long)? @ -No Were there social determinants of health that impacted care today? How? (Homelessness, low income, unemployed, alcoholism, drug addiction, transportation, low edu. Level, literacy, decrease access to med. care, skilled nursing, rehab)? @ -No Was there de-escalation of care discussed even if they declined (Discuss DNR or withdrawal of care, Hospice)? DNR status @ -No What co-morbidities impacted this encounter? (DM, HTN, Smoking, COPD, CAD, Cancer, CVA, ARF, Chemo, Hep., AIDS, mental health diagnosis, sleep apnea, morbid obesity)? @ -None Was patient admitted / discharged? Hospital course, mention meds given and route, prescriptions, significant lab abnormalities, going to OR and other pertinent info. @ -Discharged. Patient presented to the emergency department for evaluation of a fall with head injury. She is on Eliquis 2.5 mg twice a day. She states that the fall occurred at 3 AM last night. She did not lose consciousness. She states that she lost her balance and fell backwards hitting her head on the nightstand. On examination, patient is alert and oriented. Patient denies any other injuries. Cardiac regular rate and rhythm, lungs clear to auscultation. Patient does have 1+ bilateral lower extremity edema patient states that this is typical for her. She does admit to lower extremity vascular disease. CT brain and C-spine was obtained. There is no evidence of acute intracranial process, no acute cervical spine fracture. Discussed findings with patient and caregiver at bedside. They're understanding and agreeable with lamp to discharge patient back to her facility. Patient stable at time of discharge. Case discussed with Dr. Galvan Undiagnosed new problem with uncertain prognosis? @ -No Drug Therapy requiring intensive monitoring for toxicity (Heparin, Nitro, Insulin, Cardizem)? @ -No Were any procedures done? @ -No Diagnosis/symptom? @ -closed head injury Acute, or Chronic, or Acute on Chronic? @ -acute Uncomplicated (without systemic symptoms) or Complicated (systemic symptoms)? @ -uncomplicated Side effects of treatment? @ -No Exacerbation, Progression, or Severe Exacerbation? @ -No Poses a threat to life or bodily function? How? (Chest pain, [place], [place], pneumonia, PE, COPD, DKA, ARF, appy, cholecystitis, CVA, Diverticulitis, Homicidal, Suicidal, threat to staff... and all critical care pts) @ -No (Angela Raman) Disposition <Corrine Frederick - Last Filed: 04/13/23 15:43> Is patient prescribed a controlled substance at d/c from ED?: No <Angela Raman - Last Filed: 04/13/23 18:13> Clinical Impression: Closed head injury, Fall Disposition: HOME SELF-CARE Condition: Stable Instructions (If sedation given, give patient instructions): Fall Prevention for Older Adults (ED) Additional Instructions: Please follow up with your primary care provider. Return to the emergency department for new or worsening symptoms. Referrals: Maurice Kruse MD [Primary Care Provider] - 1-2 days
[2023-04-13 15:45] VITALS: TEMP 97.8
--- NOTE | 2023-04-13 17:08 | CT ---
EXAMINATION TYPE: CT brain mariaa jones DATE OF EXAM: 04/13/2023 COMPARISON: Brain 12/14/2018 HISTORY: 87-year-old female with pain after FALL LAST NIGHT, BRUISING TO RIGHT POSTERIOR HEAD CT DLP: 1189.3 mGycm Automated exposure control for dose reduction was used. Technique: Examination of the head was done in axial plane without intravenous contrast. Coronal and sagittal reconstructions performed. CT of the cervical spine was obtained in axial plane without intravenous injection of contrast mater ial. Coronal and sagittal reformatted images were obtained from the axial views for evaluation of f ractures, spinal alignment and canal. FINDINGS: Head: There is no evidence of acute intracranial hemorrhage, acute ischemic changes, mass, mass-effect, or extra-axial fluid collection. There is no effacement of cerebral sulci or basal subarachnoid cister ns. There is no hydrocephalus. There is no midline shift. Centeno-white matter distinction is preserv ed. Mild right parietal scalp contusion. No underlying calvarial fracture. Mild generalized supratentorial volume loss. Patchy white matter hypodensities especially in the subi nsular region of both cerebral hemispheres. Atherosclerotic calcifications in the carotid siphons. Paranasal sinuses and mastoid air cells well pneumatized. Orbits and globes are intact. Cervical spine: No craniocervical junction abnormality, predental space widening, or prevertebral soft tissue swellin g. There is degenerative change of the C1 dens articulation. Moderate to advanced spondylotic changes especially C4-C7 levels. Degenerative grade 1 anterolisthesis C3-C4 and C4-C5. Disc osteophyte complex that C5-C6 and C6-C7 contributing to a mild to moderate spinal canal stenosis . Multilevel facet and uncovertebral joint arthropathy is present. No acute fracture seen of the cervical spine. Interval mild neuroforaminal stenoses throughout. More mild to moderate C5-C6, the left at C6-C7. Incidentally, the esophagus appears distended and a portion filled with mottled debris in the upper c hest. Sagittal and coronal reformatted images confirm above findings. COMBINED IMPRESSION: 1. Right parietal scalp contusion. No acute intracranial abnormality seen. 2. Mild generalized atrophy and mild patchy burden of chronic small vessel ischemic disease. 3. No acute fracture of the cervical spine. Moderate spondylotic change with degenerative grade 1 ant erolisthesis C3-C4 and C4-C5. 4. The esophagus appears distended and filled with mottled debris in the upper chest. Unclear if this relates to prominent gastroesophageal reflux, esophageal dysmotility, or a distal esophageal obstruc tion. GI referral for further assessment. Direct visualization if clinically indicated.
[2023-04-13 18:44] VITALS: BP 188/76; PULSE 78; RESP 18
== END 2023-04-13 18:23 | disposition home or self-care (01) ==
LOC: EC 15:06
DX: S09.90XA Unspecified injury of head, initial encounter (principal); I67.82 Cerebral ischemia; I65.23 Occlusion and stenosis of bilateral carotid arteries; I48.91 Unspecified atrial fibrillation; I10 Essential (primary) hypertension; E78.5 Hyperlipidemia, unspecified; Z79.899 Other long term (current) drug therapy; Z79.82 Long term (current) use of aspirin; Z88.5 Allergy status to narcotic agent; W06.XXXA Fall from bed, initial encounter
CPT/HCPCS: 70450; 72125; 99283

== ENCOUNTER 2023-04-24 11:57 | Emergency (ER) | payer MEDICARE, OTHER ==
[2023-04-24] MEDS ORDERED: DIPH,PERTUS(ACELL)TETVAC-LF 0.5 ML VIAL IM ONE (12:07)
[2023-04-24 12:37] VITALS: RESP 18; TEMP 98.5
--- NOTE | 2023-04-24 13:16 | CT ---
EXAMINATION TYPE: CT brain mariaa wo con DATE OF EXAM: 04/24/2023 COMPARISON: 04/13/2023 HISTORY: recent fall, prior on pacs CT DLP: 1319.9 mGycm, Automated exposure control for dose reduction was used. CONTRAST: Patient injected with 0 mL of Isovue 300. CT of the brain is performed utilizing 3 mm thick sections through the posterior fossa and 3 mm thick sections through the remaining calvarium. Study is performed within 24 hours of arrival to the hospital. No abnormal hyperdensity is present to suggest an acute intracranial hemorrhage. No mass lesion is evident. No acute infarcts are evident. Ventricles and sulci are mildly prominent for the patient age. Paranasal sinuses and mastoid air cells within the [id number] are clear. IMPRESSIONS: 1. Age-related atrophy. 2. No acute intracranial process. Follow-up MRI can be performed as clinically indicated. CT cervical spine. COMPARISON: None CT of the cervical spine is performed in the axial plane at 2 mm thick sections. Reconstructed image s in the coronal, and sagittal plane are reviewed on the computer. No acute fractures are evident. Vertebral body alignment is normal. There is loss of disc height throughout the lumbar spine. Some minimal vacuum disc phenomenon is pres ent at C5-6. Posterior endplate spurring is present C5-6 C6-7. Prevertebral space is normal. Vertebral body heights are preserved. No spinal canal stenosis is evident. Some foraminal narrowing from facet hypertrophy and uncovertebral joint hypertrophy is present C3-4 b ilaterally. This also present C4-5 on the right. More severe foraminal stenosis present at C5-6 bilat erally. Milder foraminal narrowing is present C6-7. IMPRESSION: 1. Degenerative disc changes and foraminal stenosis discussed above. 2. No acute osseous abnormality.
[2023-04-24] MEDS ORDERED: LIDOCAINE/EPINEPHR/TETRACAINE 5 ML BOTTLE TOPICAL ONE (13:39)
--- NOTE | 2023-04-24 14:26 | XR ---
EXAMINATION TYPE: XR shoulder complete LT DATE OF EXAM: 04/24/2023 2:21 PM CLINICAL INDICATION:Female, 87 years old with history of pain, fall; COMPARISON: None TECHNIQUE: XR shoulder complete LT; examined in AP, internally rotated and scapular Y projections. FINDINGS: No evidence of acute osseous pathology, joint dislocation, or soft tissue swelling. The remaining po rtions of the visualized chest are unremarkable. Mild degeneration changes of the left acromion, dis sheri clavicle with osteophyte formation. There is osteophyte formation of the glenoid and humeral head . There is joint space narrowing of glenohumeral joint IMPRESSION: No acute osseous pathology. Mild shoulder osteoarthrosis.
[2023-04-24] MEDS ORDERED: LIDOCAINE 1% INJ 10MG/ML (20 ML MDV) SQ ONE (14:31)
--- NOTE | 2023-04-24 15:16 | ED ---
Fall HPI - General Chief Complaint: Fall Stated Complaint: Fall, Hit Head on Thinners Time Seen by Provider: 04/24/23 12:01 Source: patient, family Mode of arrival: EMS - History of Present Illness Initial Comments: Patient is a 7-year-old female is otherwise healthy presents to the emergency room for head injury. Patient was leaning forward making her bed when she lost her balance falling forward and hit the left parietal scalp on her nightstand. She denies any loss consciousness. Denies any headache, dizziness or vision changes. She denies any pain. She has some mild left shoulder pain. She is unsure of her tetanus is up-to-date. Patient is a independent living facility - Related Data Home Medications Medication Instructions Recorded Confirmed Gabapentin 300 mg PO BID 12/15/15 01/10/16 Multivitamin/Iron/Folic Acid 1 tab PO DAILY 12/15/15 01/10/16 [Centrum Complete Multivit Tab] Simvastatin [Zocor] 40 mg PO HS 12/15/15 01/10/16 rOPINIRole HCL 1 mg PO HS 12/15/15 01/10/16 traMADol HCL [Ultram] 50 mg PO Q6H PRN 12/15/15 01/10/16 Aspirin [Adult Low Dose Aspirin EC] 81 mg PO DAILY 12/31/15 01/10/16 Fish Oil/Dha/Epa [Fish Oil 1,200 1 cap PO DAILY 12/31/15 01/10/16 mg Fish Oil] amLODIPine BESYLATE/BENAZEPRIL 1 cap PO DAILY 12/31/15 01/10/16 [Lotrel 5-40 MG] hydroCHLOROthiazide [Hydrodiuril] 25 mg PO DAILY 12/31/15 01/10/16 Previous Rx's Medication Instructions Recorded Levofloxacin [Levaquin] 250 mg PO DAILY #5 tablet 01/13/16 Melatonin 6 mg PO HS tablet 01/13/16 Pantoprazole [Protonix] 40 mg PO DAILY #30 tablet. 01/13/16 Cephalexin [Keflex] 500 mg PO Q6HR 28 Days #7 cap 02/06/23 Cephalexin [Keflex] 500 mg PO Q6HR #28 cap 04/13/23 Allergies Allergy/AdvReac Type Severity Reaction Status Date / Time codeine AdvReac Nausea Verified 04/24/23 12:21 Review of Systems ROS Statement: Those systems with pertinent positive or pertinent negative responses have been documented in the HPI. ROS Other: All systems not noted in ROS Statement are negative. Past Medical History Past Medical History: Atrial Fibrillation, Cancer, Hyperlipidemia, Hypertension Additional Past Medical History / Comment(s): nose skin cancer History of Any Multi-Drug Resistant Organisms: None Reported Past Surgical History: Cholecystectomy, Hysterectomy, Orthopedic Surgery Additional Past Surgical History / Comment(s): bladder suspension and cervial ring Past Anesthesia/Blood Transfusion Reactions: No Reported Reaction Past Psychological History: No Psychological Hx Reported Smoking Status: Never smoker Past Alcohol Use History: None Reported Past Drug Use History: None Reported - Past Family History Sister(s) Family Medical History: Diabetes Mellitus Brother(s) Family Medical History: Cancer (Brain) General Exam Limitations: no limitations, language barrier General appearance: alert, in no apparent distress Head exam: Present: other (Swelling to the left parietal scalp there is a 1.1 cm laceration over the left parietal scalp with minimal active bleeding. Pupils are equal and reactive bilaterally negative for any Palacios sign or raccoon eyes. Negative hematympanum) Eye exam: Present: normal appearance, PERRL ENT exam: Present: normal exam Neck exam: Present: full ROM. Absent: tenderness Respiratory exam: Present: normal lung sounds bilaterally. Absent: respiratory distress Cardiovascular Exam: Present: regular rate, normal rhythm GI/Abdominal exam: Present: soft Extremities exam: Present: full ROM Back exam: Present: full ROM, other (no Pain EHL intact, negative straight leg test) Neurological exam: Present: alert, oriented X3, CN II-XII intact Psychiatric exam: Present: normal affect, normal mood Skin exam: Present: warm, dry. Absent: intact Course Vital Signs 04/24/23 04/24/23 12:14 15:32 Temperature 98.5 F Pulse Rate 73 72 Respiratory 18 18 Rate Blood Pressure 159/64 174/87 O2 Sat by Pulse 93 L 98 Oximetry - Reevaluation(s) Reevaluation #1: 04/24/23 15:16 Patient tolerated laceration repair well. I discussed stable removal in 5-7 days with the daughter at the bedside. Her tetanus was updated today. She is alert and oriented emergency room. No skull fracture hemorrhage or other acute changes seen on the head and C-spine CT. The shoulder x-ray shows mild arthritis with no fractures or acute changes. I discussed signs return to the emergency room with the daughter including but not limited to any abnormal speech, vomiting, vision changes, lethargy or new concerning symptoms. Procedures - Laceration Laceration #2 Consent Obtained: verbal consent Indication: laceration Site: scalp Description: linear Depth: simple, single layer Anesthetic Used: lidocaine 1% Number of Sutures: 4 (tucker) Patient Tolerated Procedure: well Additional Comments: 4 tucker Medical Decision Making - Medical Decision Making Was pt. sent in by a medical professional or institution (, FRANKIE, OCEAN LIFEGUARD SPECIALIST, urgent care, hospital, or correction...) When possible be specific @ -[No] Did you speak to anyone other than the patient for history (EMS, parent, family, police, friend...)? What history was obtained from this source @ -Yes daughter at bedside Did you review nursing and triage notes (agree or disagree)? Why? @ -[I reviewed and agree with nursing and triage notes] Were old charts reviewed (outside hosp., previous admission, EMS record, old EKG, old radiological studies, urgent care reports/EKG's, correction records)? Report findings @ -[No old charts were reviewed] Differential Diagnosis (chest pain, altered mental status, abdominal pain women, abdominal pain men, vaginal bleeding, weakness, fever, dyspnea, syncope, headache, dizziness, GI bleed, back pain, seizure, CVA, palpatations, mental health, musculoskeletal)? @ -[Head injury without loss consciousness, laceration of the scalp, left shoulder contusion concussion EKG interpreted by me (3pts min.). @ -[As above] X-rays interpreted by me (1pt min.). @ -[As negative for any fracture dislocation of the left shoulder] CT interpreted by me (1pt min.). @ -Headed and C-spine are negative for fracture acute changes U/S interpreted by me (1pt. min.). @ -[None done] What testing was considered but not performed or refused? (CT, X-rays, U/S, labs)? Why? @ -[None] What meds were considered but not given or refused? Why? @ -[None] Did you discuss the management of the patient with other professionals (professionals i.e. , FRANKIE, OCEAN LIFEGUARD SPECIALIST, lab, RT, psych nurse, high school social studies tutor, air valve mechanic, teacher, business services officer, leather case finisher)? Give summary @ -[No] Was smoking cessation discussed for >3mins.? @ -[No] Was critical care preformed (if so, how long)? @ -[No] Were there social determinants of health that impacted care today? How? (Homelessness, low income, unemployed, alcoholism, drug addiction, transportation, low edu. Level, literacy, decrease access to med. care, long-term, rehab)? @ -[No] Was there de-escalation of care discussed even if they declined (Discuss DNR or withdrawal of care, Hospice)? DNR status @ -[No] What co-morbidities impacted this encounter? (DM, HTN, Smoking, COPD, CAD, Cancer, CVA, ARF, Chemo, Hep., AIDS, mental health diagnosis, sleep apnea, morbid obesity)? @ -[None] Was patient admitted / discharged? Hospital course, mention meds given and route, prescriptions, significant lab abnormalities, going to OR and other pertinent info. @ -[Patient is stable to follow up as an outpatient. She may follow up with her primary care physician for staple removal. Discussed signs return to the emergency room with patient and daughter bedside including but not limited to any abnormal behavior and all speech lethargy vomiting vision changes or any concerning symptoms. ] Undiagnosed new problem with uncertain prognosis? @ -[No] Drug Therapy requiring intensive monitoring for toxicity (Heparin, Nitro, Insulin, Cardizem)? @ -[No] Were any procedures done? @ -[Laceration care, 4 tucker placed Diagnosis/symptom? @ -[Fall, head injury without loss consciousness, scalp laceration, tetanus vaccination Acute, or Chronic, or Acute on Chronic? @ -[ACUTE Uncomplicated (without systemic symptoms) or Complicated (systemic symptoms)? @ -[default] Side effects of treatment? @ -[No] Exacerbation, Progression, or Severe Exacerbation? @ -[No] Poses a threat to life or bodily function? How? (Chest pain, USA, [place], pneumonia, PE, COPD, DKA, ARF, appy, cholecystitis, CVA, Diverticulitis, Homicidal, Suicidal, threat to staff... and all critical care pts) @ -[No] - Radiology Data Radiology results: report reviewed, image reviewed Disposition Clinical Impression: Acute head injury without loss of consciousness, Tetanus toxoid vaccination administered at current visit, Scalp laceration, Shoulder pain, left Disposition: HOME SELF-CARE Condition: Good Additional Instructions: FOLLOW UP IN 5-7 DAYS FOR STAPLE REMOVAL Return to the emergency room for any abnormal behavior, vision changes, vomiting, head pain, lethargy or new concerning symptoms. Is patient prescribed a controlled substance at d/c from ED?: No If prescribed controlled substance>3 days was MAPS reviewed?: No Referrals: Maurice Kruse MD [Primary Care Provider] - 1-2 days Renetta Blevins DO [Doctor of Osteopathic Medicine] - 1-2 days Time of Disposition: 15:19
[2023-04-24 15:33] VITALS: BP 174/87; PULSE 72
== END 2023-04-24 15:33 | disposition home or self-care (01) ==
LOC: EC 11:57
DX: S01.01XA Laceration without foreign body of scalp, initial encounter (principal); M19.012 Primary osteoarthritis, left shoulder; I10 Essential (primary) hypertension; E78.5 Hyperlipidemia, unspecified; Z79.82 Long term (current) use of aspirin; Z79.899 Other long term (current) drug therapy; Z88.5 Allergy status to narcotic agent; Z23 Encounter for immunization; Z90.49 Acquired absence of other specified parts of digestive tract; W01.198A Fall on same level from slipping, tripping and stumbling with subsequent striking against other object, initial encounter
CPT/HCPCS: 73030; 72125; 70450; 90715; 99284; 90471; 12001; J2001; 96372

== ENCOUNTER 2023-06-27 01:17 | Emergency (ER) | payer MEDICARE, OTHER ==
--- NOTE | 2023-06-27 01:23 | ED ---
Fall HPI - General Stated Complaint: Hypertension Time Seen by Provider: 06/27/23 01:22 Source: RN notes reviewed, old records reviewed Mode of arrival: ambulatory Limitations: no limitations - History of Present Illness Initial Comments: This is a 87-year-old female after a fall today. Patient had fall from standing on blood thinners. Patient unsure if she hit her head does complain of some bodyaches and pains MD Complaint: fall -: hour(s) Fall From: standing When Fall Occurred: 1 hour METAL STUD FRAMER, 1-3 hours METAL STUD FRAMER Fall Witnessed: no Place Fall Occurred: home Loss of Consciousness: none Prolonged Down Time?: no Symptoms Prior to Fall: none Location: head Severity: mild Severity scale (1-10): 3 Context: tripped/slipped Associated Symptoms: denies - Related Data Home Medications Medication Instructions Recorded Confirmed Gabapentin 300 mg PO BID 12/15/15 01/10/16 Multivitamin/Iron/Folic Acid 1 tab PO DAILY 12/15/15 01/10/16 [Centrum Complete Multivit Tab] Simvastatin [Zocor] 40 mg PO HS 12/15/15 01/10/16 rOPINIRole HCL 1 mg PO HS 12/15/15 01/10/16 traMADol HCL [Ultram] 50 mg PO Q6H PRN 12/15/15 01/10/16 Aspirin [Adult Low Dose Aspirin EC] 81 mg PO DAILY 12/31/15 01/10/16 Fish Oil/Dha/Epa [Fish Oil 1,200 1 cap PO DAILY 12/31/15 01/10/16 mg Fish Oil] amLODIPine BESYLATE/BENAZEPRIL 1 cap PO DAILY 12/31/15 01/10/16 [Lotrel 5-40 MG] hydroCHLOROthiazide [Hydrodiuril] 25 mg PO DAILY 12/31/15 01/10/16 Previous Rx's Medication Instructions Recorded Levofloxacin [Levaquin] 250 mg PO DAILY #5 tablet 01/13/16 Melatonin 6 mg PO HS tablet 01/13/16 Pantoprazole [Protonix] 40 mg PO DAILY #30 tablet. 01/13/16 Cephalexin [Keflex] 500 mg PO Q6HR 28 Days #7 cap 02/06/23 Cephalexin [Keflex] 500 mg PO Q6HR #28 cap 04/13/23 Allergies Allergy/AdvReac Type Severity Reaction Status Date / Time codeine AdvReac Nausea Verified 06/27/23 01:24 Review of Systems ROS Statement: Those systems with pertinent positive or pertinent negative responses have been documented in the HPI. ROS Other: All systems not noted in ROS Statement are negative. Past Medical History Past Medical History: Atrial Fibrillation, Cancer, Hyperlipidemia, Hypertension Additional Past Medical History / Comment(s): nose skin cancer History of Any Multi-Drug Resistant Organisms: None Reported Past Surgical History: Cholecystectomy, Hysterectomy, Orthopedic Surgery Additional Past Surgical History / Comment(s): bladder suspension and cervial ring Past Anesthesia/Blood Transfusion Reactions: No Reported Reaction Past Psychological History: No Psychological Hx Reported Smoking Status: Never smoker Past Alcohol Use History: None Reported Past Drug Use History: None Reported - Past Family History Sister(s) Family Medical History: Diabetes Mellitus Brother(s) Family Medical History: Cancer (Brain) General Exam General appearance: alert, in no apparent distress Head exam: Present: atraumatic, normocephalic, normal inspection Eye exam: Present: normal appearance, PERRL, EOMI. Absent: scleral icterus, conjunctival injection, periorbital swelling ENT exam: Present: normal exam, mucous membranes moist Neck exam: Present: normal inspection. Absent: tenderness, meningismus, lymphadenopathy Respiratory exam: Present: normal lung sounds bilaterally. Absent: respiratory distress, wheezes, rales, rhonchi, stridor Cardiovascular Exam: Present: regular rate, normal rhythm, normal heart sounds. Absent: systolic murmur, diastolic murmur, rubs, gallop, clicks GI/Abdominal exam: Present: soft, normal bowel sounds. Absent: distended, tenderness, guarding, rebound, rigid Extremities exam: Present: normal inspection, full ROM, normal capillary refill. Absent: tenderness, pedal edema, joint swelling, calf tenderness Back exam: Present: normal inspection Neurological exam: Present: alert, oriented X3, CN II-XII intact Psychiatric exam: Present: normal affect, normal mood Skin exam: Present: warm, dry, intact, normal color. Absent: rash Course Vital Signs 06/27/23 06/27/23 06/27/23 01:25 02:03 02:11 Temperature 98.4 F Pulse Rate 73 68 70 Respiratory 20 16 19 Rate Blood Pressure 206/90 190/103 174/67 O2 Sat by Pulse 96 96 96 Oximetry 06/27/23 06/27/23 06/27/23 02:14 02:36 03:22 Temperature Pulse Rate 74 71 75 Respiratory 19 15 16 Rate Blood Pressure 158/71 151/75 178/71 O2 Sat by Pulse 95 94 L 98 Oximetry 06/27/23 05:22 Temperature 98 F Pulse Rate 56 L Respiratory 15 Rate Blood Pressure 171/83 O2 Sat by Pulse 98 Oximetry - Reevaluation(s) Reevaluation #1: 06/27/23 01:47 Medical records reviewed Reevaluation #2: 06/27/23 03:30 Patient symptoms are unchanged here in the ER 06/27/23 04:51 Patient did have elevated potassium which improved on recheck. Reevaluation #3: 06/27/23 03:30 Patient informed of results and questions answered Reevaluation #4: Was pt. sent in by a medical professional or institution (, FRANKIE, GENDER STUDIES PROFESSOR, urgent care, hospital, or longterm...) When possible be specific @ -no Did you speak to anyone other than the patient for history (EMS, parent, family, police, friend...)? What history was obtained from this source @ -no Did you review nursing and triage notes (agree or disagree)? Why? @ -agree Are old charts reviewed (outside hosp., previous admission, EMS record, old EKG, old radiological studies, urgent care reports/EKG's, longterm records)? R eport findings @ -yes Differential Diagnosis (chest pain, altered mental status, abdominal pain women, abdominal pain men, vaginal bleeding, weakness, fever, dyspnea, syncope, headache, dizziness, GI bleed, back pain, seizure, CVA, palpatations, mental health, musculoskeletal)? @ -prior EKG interpreted by me (3pts min.). @ -yes X-rays interpreted by me (1pt min.). @ -yes negative for acute disease CT interpreted by me (1pt min.). @ -Yes negative for acute disease U/S interpreted by me (1pt. min.). @ -no What testing was considered but not performed or refused? (CT, X-rays, U/S, labs)? Why? @ -none What meds were considered but not given or refused? Why? @ -none Did you discuss the management of the patient with other professionals (professionals i.e. Dr., PA, GENDER STUDIES PROFESSOR, lab, RT, psych nurse, social studies teacher, director of collections, teacher, targeting acquisition officer, pillowcase cleaner)? Give summary @ -no Was smoking cessation discussed for >3mins.? @ -no Was critical care preformed (if so, how long)? @ -no Were there social determinants of health that impacted care today? How? (Homelessness, low income, unemployed, alcoholism, drug addiction, transportation, low edu. Level, literacy, decrease access to med. care, long term, rehab)? @ -none Was there de-escalation of care discussed even if they declined (Discuss DNR or withdrawal of care, Hospice)? DNR status @ -no What co-morbidities impacted this encounter? (DM, HTN, Smoking, COPD, CAD, Cancer, CVA, ARF, Chemo, Hep., AIDS, mental health diagnosis, sleep apnea, morbid obesity)? @ -none Was patient admitted / discharged? Hospital course, mention meds given and route, prescriptions, significant lab abnormalities, going to OR and other pertinent info. @ - 87 female with mechanical fall with no acute findings here in the emergency room. Patient has normal lab testing, normal imaging and feels well, can be discharged home discharge Discharge Undiagnosed new problem with uncertain prognosis? @ -no Drug Therapy requiring intensive monitoring for toxicity (Heparin, Nitro, Insulin, Cardizem)? @ -no Were any procedures done? @ -no Diagnosis/symptom? @ -Weakness and fall Acute, or Chronic, or Acute on Chronic? @ -Acute Uncomplicated (without systemic symptoms) or Complicated (systemic symptoms)? @ -Complicated Side effects of treatment? @ -no Exacerbation, Progression, or Severe Exacerbation? @ -exacerbation Poses a threat to life or bodily function? How? (Chest pain, USA, [place], pneumonia, PE, COPD, DKA, ARF, appy, cholecystitis, CVA, Diverticulitis, Homicidal, Suicidal, threat to staff... and all critical care pts) @ -yes severe extremes of age Reevaluation #5: Differential Weakness: Hypoglycemia, shock, sepsis, hyponatremia, anemia, infection, GA, ETOH, adverse medicine reaction, overdose, stroke, this is not meant to be an all-inclusive list. Medical Decision Making - Medical Decision Making 87 female with mechanical fall with no acute findings here in the emergency room. Patient has normal lab testing, normal imaging and feels well, can be discharged home - Lab Data Result diagrams: 06/27/23 01:48 06/27/23 03:47 Lab Results 06/27/23 06/27/23 06/27/23 Range/Units 01:48 01:48 01:48 WBC 5.5 (3.8-10.6) k/uL RBC 4.52 (3.80-5.40) m/uL Hgb 14.3 (11.4-16.0) gm/dL Hct 45.2 (34.0-46.0) % MCV 100.0 (80.0-100.0) fL MCH 31.7 (25.0-35.0) pg MCHC 31.7 (31.0-37.0) g/dL RDW 14.6 (11.5-15.5) % Plt Count 114 L (150-450) k/uL MPV 12.0 Neutrophils % 72 % Lymphocytes % 18 % Monocytes % 7 % Eosinophils % 0 % Basophils % 1 % Neutrophils # 4.0 (1.3-7.7) k/uL Lymphocytes # 1.0 (1.0-4.8) k/uL Monocytes # 0.4 (0-1.0) k/uL Eosinophils # 0.0 (0-0.7) k/uL Basophils # 0.0 (0-0.2) k/uL Macrocytosis Slight PT 10.6 (10.0-12.5) sec INR 1.0 (<1.2) APTT 28.8 (22.0-30.0) sec Sodium 137 (137-145) mmol/L Potassium 6.3 H* (3.5-5.1) mmol/L Chloride 103 (98-107) mmol/L Carbon Dioxide 23 (22-30) mmol/L Anion Gap 11 mmol/L BUN 39 H (7-17) mg/dL Creatinine 2.15 H (0.52-1.04) mg/dL Est GFR (CKD-EPI)AfAm 23 (>60 ml/min/1.73 sqM) Est GFR (CKD-EPI)NonAf 20 (>60 ml/min/1.73 sqM) Glucose 95 (74-99) mg/dL Plasma Lactic Acid Geovany (0.7-2.0) mmol/L Calcium 9.6 (8.4-10.2) mg/dL Phosphorus 4.5 (2.5-4.5) mg/dL Magnesium 2.2 (1.6-2.3) mg/dL Total Bilirubin 1.1 (0.2-1.3) mg/dL AST 60 H (14-36) U/L ALT 22 (4-34) U/L Alkaline Phosphatase 133 H (38-126) U/L Troponin I (0.000-0.034) ng/mL NT-Pro-B Natriuret Pep 6560 pg/mL Total Protein 7.8 (6.3-8.2) g/dL Albumin 4.4 (3.5-5.0) g/dL 06/27/23 06/27/23 06/27/23 Range/Units 01:48 01:48 03:47 WBC (3.8-10.6) k/uL RBC (3.80-5.40) m/uL Hgb (11.4-16.0) gm/dL Hct (34.0-46.0) % MCV (80.0-100.0) fL MCH (25.0-35.0) pg MCHC (31.0-37.0) g/dL RDW (11.5-15.5) % Plt Count (150-450) k/uL MPV Neutrophils % % Lymphocytes % % Monocytes % % Eosinophils % % Basophils % % Neutrophils # (1.3-7.7) k/uL Lymphocytes # (1.0-4.8) k/uL Monocytes # (0-1.0) k/uL Eosinophils # (0-0.7) k/uL Basophils # (0-0.2) k/uL Macrocytosis PT (10.0-12.5) sec INR (<1.2) APTT (22.0-30.0) sec Sodium 137 (137-145) mmol/L Potassium 5.2 H (3.5-5.1) mmol/L Chloride 106 (98-107) mmol/L Carbon Dioxide 25 (22-30) mmol/L Anion Gap 6 mmol/L BUN 37 H (7-17) mg/dL Creatinine 2.08 H (0.52-1.04) mg/dL Est GFR (CKD-EPI)AfAm 24 (>60 ml/min/1.73 sqM) Est GFR (CKD-EPI)NonAf 21 (>60 ml/min/1.73 sqM) Glucose 102 H (74-99) mg/dL Plasma Lactic Acid Geovany 1.0 (0.7-2.0) mmol/L Calcium 8.9 (8.4-10.2) mg/dL Phosphorus (2.5-4.5) mg/dL Magnesium (1.6-2.3) mg/dL Total Bilirubin (0.2-1.3) mg/dL AST (14-36) U/L ALT (4-34) U/L Alkaline Phosphatase (38-126) U/L Troponin I <0.012 (0.000-0.034) ng/mL NT-Pro-B Natriuret Pep pg/mL Total Protein (6.3-8.2) g/dL Albumin (3.5-5.0) g/dL - EKG Data -: EKG Interpreted by Me (EKG is A-fib 68 QRS 93 QTc 403) - Radiology Data Radiology results: report reviewed (CT brain and C-spine x-ray chest and pelvis are negative for traumatic injury), image reviewed Disposition Clinical Impression: Fall, Weakness, Hyperkalemia Disposition: HOME SELF-CARE Condition: Good Instructions (If sedation given, give patient instructions): Fall Prevention for Older Adults (ED) Is patient prescribed a controlled substance at d/c from ED?: No Referrals: Maurice Kruse MD [Primary Care Provider] - 1-2 days Time of Disposition: 03:30
[2023-06-27] MEDS: LABETALOL 5 MG/ML VIAL MDV IVP STA (02:07)
[2023-06-27] MEDS: SODIUM CHLORIDE 0.9% 1,000 ML IV STA (02:11)
[2023-06-27 02:21] LABS: Basophils % (A) 1 %; Eosinophils % (A) 0 %; HCT 45.2 % (34.0-46.0); HGB 14.3 gm/dL (11.4-16.0); Lymphocytes % (A) 18 %; MCH 31.7 pg (25.0-35.0); MCHC 31.7 g/dL (31.0-37.0); Macrocytosis Slight; Monocytes # (A) 0.4 k/uL (0-1.0); Monocytes % (A) 7 %; Neutrophils % (A) 72 %; Platelet Count 114 k/uL (150-450); RBC 4.52 m/uL (3.80-5.40); RDW 14.6 % (11.5-15.5); WBC 5.5 k/uL (3.8-10.6)
--- NOTE | 2023-06-27 02:34 | XR ---
EXAMINATION TYPE: XR pelvis AP view DATE OF EXAM: 06/27/2023 CLINICAL HISTORY: Fall with pain TECHNIQUE: A single AP view of the pelvis is obtained. COMPARISON: CT abdomen and pelvis from 2016. FINDINGS: Lucency from overlying bowel gas makes evaluation suboptimal. There is no acute displaced fracture evident in the pelvis. Metallic hardware from total right hip arthroplasty is redemonstrated . Moderate to advanced narrowing of left hip joint is redemonstrated. Pubic symphysis is intact. Vasc ular calcification overlies the bilateral pelvis extending into the bilateral groin region IMPRESSION: Suboptimal study but no acute displaced fracture is seen in the pelvis.
--- NOTE | 2023-06-27 02:35 | XR ---
EXAMINATION TYPE: XR chest 1V DATE OF EXAM: 06/27/2023 COMPARISON: Chest x-ray December 14, 2018 HISTORY: Fall injury with pain TECHNIQUE: Single frontal view of the chest is obtained. FINDINGS: There is some chronic parenchymal changes without suspicious new focal air space opacity, pleural effusion, or pneumothorax seen. Cardiomegaly with atherosclerotic thoracic aorta redemonstrat ed. Osseous structures are intact. IMPRESSION: Cardiomegaly without acute pulmonary process.
[2023-06-27 02:40] LABS: Partial Thromboplastin Time 28.8 sec (22.0-30.0); Prothrombin Time 10.6 sec (10.0-12.5)
--- NOTE | 2023-06-27 02:54 | CT ---
EXAMINATION TYPE: CT brain cspine wo con DATE OF EXAM: 06/27/2023 COMPARISON: Prior trauma CT April 24, 2023 HISTORY: pt stated she was getting up from bed to use the bathroom and lost her balance. The pt state d she fell and the walker went with her. Stated she hit her head on the right side on the nightstand table. Fall. CT DLP: 1231.1 mGycm. Automated Exposure Control for Dose Reduction was Utilized. TECHNIQUE: CT scan of the head and cervical spine are performed without contrast. FINDINGS: There is no acute intracranial hemorrhage or midline shift identified. Mild to moderate v entricular and sulcal prominence redemonstrated. Mild low attenuation in the periventricular white ma tter redemonstrated. The calvarium is intact. Bilateral aphakia redemonstrated. The paranasal sinuses remain clear. Cervical spine is visualized in its entirety from C1 through upper thoracic levels and demonstrates s atisfactory alignment without evidence of acute fracture or dislocation. Prevertebral soft tissue ap pears within normal limits. The C1-C2 articulation demonstrates asymmetric left-sided narrowing on t he coronal images. Vertebral body heights are maintained. There is moderate to severe disc space narr owing at C5-C6 and C6-C7 level redemonstrated. Posterior spurring effaces the anterior thecal sac at these levels. Axial images reconstructed multilevel uncovertebral facet degenerative changes bilatera lly. There is moderate calcified plaque bilateral carotid bulb level. Thyroid gland remains within no rmal limits. Lung apices show no pneumothorax. There is 4 to 5 mm anterior right upper lobe pulmonary nodule axial image 92. Dilated gas-filled esophagus is partially imaged similar to prior. IMPRESSION: 1. There is no acute fracture or dislocation evident in the cervical spine. 2. No acute intracranial hemorrhage or midline shift is seen. No significant change from most recent prior trauma CT.
[2023-06-27 03:09] LABS: ALT 22 U/L (4-34); AST 60 U/L (14-36); African American GFR (CKD) 23 (>60 ml/min/1.73 sqM); Albumin 4.4 g/dL (3.5-5.0); Alkaline Phosphatase 133 U/L (38-126); Anion Gap 11 mmol/L; Blood Urea Nitrogen 39 mg/dL (7-17); Calcium 9.6 mg/dL (8.4-10.2); Carbon Dioxide 23 mmol/L (22-30); Chloride 103 mmol/L (98-107); Glucose 95 mg/dL (74-99); Magnesium 2.2 mg/dL (1.6-2.3); Non-African American GFR(CKD) 20 (>60 ml/min/1.73 sqM); Phosphorus 4.5 mg/dL (2.5-4.5); Sodium 137 mmol/L (137-145); Total Bilirubin 1.1 mg/dL (0.2-1.3); Total Protein 7.8 g/dL (6.3-8.2)
[2023-06-27 03:17] LABS: NT-Pro-B-Type Natriuretic Pept 6560 pg/mL
[2023-06-27 03:33] LABS: Potassium 6.3 mmol/L (3.5-5.1)
[2023-06-27 04:33] LABS: African American GFR (CKD) 24 (>60 ml/min/1.73 sqM); Anion Gap 6 mmol/L; Blood Urea Nitrogen 37 mg/dL (7-17); Calcium 8.9 mg/dL (8.4-10.2); Carbon Dioxide 25 mmol/L (22-30); Chloride 106 mmol/L (98-107); Glucose 102 mg/dL (74-99); Non-African American GFR(CKD) 21 (>60 ml/min/1.73 sqM); Potassium 5.2 mmol/L (3.5-5.1); Sodium 137 mmol/L (137-145)
[2023-06-27] MEDS: FUROSEMIDE 10 MG/ML 10 ML VIAL IV STA (05:13)
[2023-06-27 05:45] VITALS: BP 171/83; PULSE 56; RESP 15; TEMP 98
== END 2023-06-27 05:22 | disposition home or self-care (01) ==
LOC: EC 01:17
DX: E87.5 Hyperkalemia (principal); R53.1 Weakness; Z88.5 Allergy status to narcotic agent; Z90.49 Acquired absence of other specified parts of digestive tract; W18.30XA Fall on same level, unspecified, initial encounter
CPT/HCPCS: 36415; 93005; 83880; 80053; 80048; 83605; 83735; 84100; 84484; 85025; 85610; 85730; 72170; 71045; 72125; 70450; 99285; 96374; 96375; 96361; J1940; J1920

== ENCOUNTER 2023-07-18 11:21 | Emergency (ER) | payer MEDICARE ==
--- NOTE | 2023-07-18 11:33 | ED ---
Female Urogenital HPI - General Stated complaint: Urinary retention Time Seen by Provider: 07/18/23 11:32 Source: patient, RN notes reviewed Mode of arrival: EMS Limitations: no limitations - History of Present Illness Initial comments: 87-year-old female presenting to the ER via EMS with a chief complaint of urinary retention. Patient states that she normally self catheterizes herself for urination. She states today she felt her bladder drop and has been unable to do exercises to put it back in place. She has not been able to catheterize herself since last night. Patient denies any pain but admits to a pressure sensation in suprapubic region. She denies any fevers, chills, abdominal pain, constipation/diarrhea, shortness of breath, chest pain or peripheral edema. - Related Data Home Medications Medication Instructions Recorded Confirmed Gabapentin 300 mg PO BID 12/15/15 01/10/16 Multivitamin/Iron/Folic Acid 1 tab PO DAILY 12/15/15 01/10/16 [Centrum Complete Multivit Tab] Simvastatin [Zocor] 40 mg PO HS 12/15/15 01/10/16 rOPINIRole HCL 1 mg PO HS 12/15/15 01/10/16 traMADol HCL [Ultram] 50 mg PO Q6H PRN 12/15/15 01/10/16 Aspirin [Adult Low Dose Aspirin EC] 81 mg PO DAILY 12/31/15 01/10/16 Fish Oil/Dha/Epa [Fish Oil 1,200 1 cap PO DAILY 12/31/15 01/10/16 mg Fish Oil] amLODIPine BESYLATE/BENAZEPRIL 1 cap PO DAILY 12/31/15 01/10/16 [Lotrel 5-40 MG] hydroCHLOROthiazide [Hydrodiuril] 25 mg PO DAILY 12/31/15 01/10/16 Previous Rx's Medication Instructions Recorded Levofloxacin [Levaquin] 250 mg PO DAILY #5 tablet 01/13/16 Melatonin 6 mg PO HS tablet 01/13/16 Pantoprazole [Protonix] 40 mg PO DAILY #30 tablet. 01/13/16 Cephalexin [Keflex] 500 mg PO Q6HR 28 Days #7 cap 02/06/23 Cephalexin [Keflex] 500 mg PO Q6HR #28 cap 04/13/23 Cephalexin [Keflex] 500 mg PO Q6HR #40 cap 07/18/23 Allergies Allergy/AdvReac Type Severity Reaction Status Date / Time codeine AdvReac Nausea Verified 07/18/23 11:34 Review of Systems ROS Statement: Those systems with pertinent positive or pertinent negative responses have been documented in the HPI. ROS Other: All systems not noted in ROS Statement are negative. Past Medical History Past Medical History: Atrial Fibrillation, Cancer, Hyperlipidemia, Hypertension Additional Past Medical History / Comment(s): nose skin cancer History of Any Multi-Drug Resistant Organisms: None Reported Past Surgical History: Cholecystectomy, Hysterectomy, Orthopedic Surgery Additional Past Surgical History / Comment(s): bladder suspension and cervial ring Past Anesthesia/Blood Transfusion Reactions: No Reported Reaction Past Psychological History: No Psychological Hx Reported Smoking Status: Never smoker Past Alcohol Use History: None Reported Past Drug Use History: None Reported - Past Family History Sister(s) Family Medical History: Diabetes Mellitus Brother(s) Family Medical History: Cancer (Brain) General Exam General appearance: alert, in no apparent distress Head exam: Present: atraumatic, normocephalic, normal inspection Respiratory exam: Present: normal lung sounds bilaterally. Absent: respiratory distress, wheezes, rales, rhonchi, stridor Cardiovascular Exam: Present: regular rate, normal rhythm, normal heart sounds. Absent: systolic murmur, diastolic murmur, rubs, gallop, clicks GI/Abdominal exam: Present: soft, normal bowel sounds. Absent: distended, tenderness, guarding, rebound, rigid Neurological exam: Present: alert, oriented X3, CN II-XII intact Skin exam: Present: warm, dry, intact, normal color. Absent: rash Course Vital Signs 07/18/23 11:29 Temperature 98.0 F Pulse Rate 79 Respiratory 18 Rate Blood Pressure 186/73 O2 Sat by Pulse 97 Oximetry Medical Decision Making - Medical Decision Making Was pt. sent in by a medical professional or institution (, PA, IT SYSTEMS ANALYST CONSULTANT, urgent care, hospital, or detention...) When possible be specific @ -No Did you speak to anyone other than the patient for history (EMS, parent, family, police, friend...)? What history was obtained from this source @ -No Did you review nursing and triage notes (agree or disagree)? Why? @ -I reviewed and agree with nursing and triage notes Were old charts reviewed (outside hosp., previous admission, EMS record, old EKG, old radiological studies, urgent care reports/EKG's, detention records)? Report findings @ -No old charts were reviewed Differential Diagnosis (chest pain, altered mental status, abdominal pain women, abdominal pain men, vaginal bleeding, weakness, fever, dyspnea, syncope, headache, dizziness, GI bleed, back pain, seizure, CVA, palpatations, mental health, musculoskeletal)? @ -UTI, urinary retention, bladder prolapse, uterine prolapse is listed on med to be all-inclusive EKG interpreted by me (3pts min.). @ -None X-rays interpreted by me (1pt min.). @ -None done CT interpreted by me (1pt min.). @ -None done U/S interpreted by me (1pt. min.). @ -None done What testing was considered but not performed or refused? (CT, X-rays, U/S, labs)? Why? @ -None What meds were considered but not given or refused? Why? @ -None Did you discuss the management of the patient with other professionals (hollie li i.eAj Soler, PA, IT SYSTEMS ANALYST CONSULTANT, lab, RT, psych nurse, high school social studies teacher, live truck operator, teacher, correctional officer chief, heel caser)? Give summary @ -No Was smoking cessation discussed for >3mins.? @ -No Was critical care preformed (if so, how long)? @ -No Were there social determinants of health that impacted care today? How? (Homelessness, low income, unemployed, alcoholism, drug addiction, transportation, low edu. Level, literacy, decrease access to med. care, shelter, rehab)? @ -No Was there de-escalation of care discussed even if they declined (Discuss DNR or withdrawal of care, Hospice)? DNR status @ -No What co-morbidities impacted this encounter? (DM, HTN, Smoking, COPD, CAD, Cancer, CVA, ARF, Chemo, Hep., AIDS, mental health diagnosis, sleep apnea, morbid obesity)? @ -Urinary retention pt self catherizes. Was patient admitted / discharged? Hospital course, mention meds given and route, prescriptions, significant lab abnormalities, going to OR and other pertinent info. @ -Discharge. 87-year-old female presenting to the ER via EMS with a chief complaint of urinary retention. History and physical exam completed. Vitals stable. Patient in no signs of acute distress and nontoxic-appearing. Bladder scan performed showing 500ml. Straight catheterization performed resulting in 600ml output. Urinalysis significant for infection with moderate leukocyte esterase's and positive nitrates. Patient will be started on Keflex. Results discussed with patient and family, at bedside, all questions answered. Mascorro catheterization offered, patient refused. Return parameters discussed. Patient discharged stable condition with follow-up to PCP. Patient verbally expressed understanding and agreement with care plan. Case discussed with ED attending, Dr. Forde. Undiagnosed new problem with uncertain prognosis? @ -No Drug Therapy requiring intensive monitoring for toxicity (Heparin, Nitro, Insulin, Cardizem)? @ -No Were any procedures done? @ -No Diagnosis/symptom? @ -UTI Acute, or Chronic, or Acute on Chronic? @ -Acute Uncomplicated (without systemic symptoms) or Complicated (systemic symptoms)? @ -Uncomplicated Side effects of treatment? @ -No Exacerbation, Progression, or Severe Exacerbation? @ -No Poses a threat to life or bodily function? How? (Chest pain, [place], [place], pneumonia, PE, COPD, DKA, ARF, appy, cholecystitis, CVA, Diverticulitis, Homicidal, Suicidal, threat to staff... and all critical care pts) @ -No - Lab Data Lab Results 07/18/23 Range/Units 12:10 Urine Color Light Yellow Urine Appearance Cloudy H (Clear) Urine pH 6.5 (5.0-8.0) Ur Specific [place] 1.014 (1.001-1.035) Urine Protein 1+ H (Negative) Urine Glucose (UA) Negative (Negative) Urine Ketones Negative (Negative) Urine Blood Negative (Negative) Urine Nitrite Positive H (Negative) Urine Bilirubin Negative (Negative) Urine Urobilinogen <2.0 (<2.0) mg/dL Ur Leukocyte Esterase Moderate H (Negative) Urine WBC 67 H (0-5) /hpf Urine Bacteria Occasional H (None) /hpf Disposition Clinical Impression: Urinary tract infection Disposition: HOME SELF-CARE Condition: Stable Instructions (If sedation given, give patient instructions): Urinary Tract Infection in Women (ED) Additional Instructions: Please complete full course of antibiotics. Follow-up with PCP. Return to the ER for any new or worsening concerns. Prescriptions: Cephalexin [Keflex] 500 mg PO Q6HR #40 cap Is patient prescribed a controlled substance at d/c from ED?: No Referrals: Maurice Kruse MD [Primary Care Provider] - 1-2 days Time of Disposition: 13:15
[2023-07-18 12:34] LABS: Appearance,Urine Cloudy (Clear); Bacteria,Urine Occasional /hpf; Bilirubin,Urine Negative (Negative); Blood,Urine Negative (Negative); Color,Urine Light Yellow; Glucose,Urine (UA) Negative (Negative); Ketones,Urine Negative (Negative); Leukocyte Esterase,Urine Moderate (Negative); Nitrite,Urine Positive (Negative); PH, Urine 6.5 (5.0-8.0); Protein,Urine 1+ (Negative); Specific Gravity,Urine 1.014 (1.001-1.035); Urobilinogen,Urine <2.0 mg/dL (<2.0); WBC,Urine 67 /hpf (0-5)
[2023-07-18 13:55] VITALS: BP 168/58; PULSE 74; RESP 16; TEMP 97.8
== END 2023-07-18 13:25 | disposition home or self-care (01) ==
LOC: EC 11:21
DX: N39.0 Urinary tract infection, site not specified (principal); B96.89 Other specified bacterial agents as the cause of diseases classified elsewhere; Z88.5 Allergy status to narcotic agent
CPT/HCPCS: 51701; 51798; 81001; 87086; 99284